=== PATIENT | male | born 1985 | race Asian ===

== ENCOUNTER 2023-05-15 13:06 | Emergency (ER) | payer BC ==
[~2023-05-15] VITALS: Ht 180.3 cm; Wt 93.0 kg
[2023-05-15 13:10] VITALS: BP_SYST 117; PULSE 89; RESP 19; TEMP 98; O2SAT 99
[2023-05-15] MEDS ORDERED: HYDROmorphone 1 MG/ML INJ. CARTRIDGE IM ONE (13:30)
[2023-05-15] MEDS ORDERED: HYDR-3917 PO (13:34)
[2023-05-15] MEDS ORDERED: METH-776 PO (13:34)
[2023-05-15] MEDS ORDERED: ONDANSETRON 4 MG ODT TAB PO ONE (14:45)
[2023-05-15] MEDS ORDERED: ONDANSETRON 4 MG ODT TAB ONE (16:16)
[2023-05-15 18:20] VITALS: BP_SYST 136
[2023-05-15 18:21] VITALS: PULSE 96; RESP 13; TEMP 97.8; O2SAT 97
== END 2023-05-15 16:00 | disposition home or self-care (01) ==
LOC: SED 13:06
DX: M54.16 Radiculopathy, lumbar region (principal); Z79.899 Other long term (current) drug therapy
CPT/HCPCS: 99285; 72131; 76376; 96372; Q0162; J1170